=== PATIENT | male | born 1980 | race American Indian/Alaskan Native ===

== ENCOUNTER 2023-01-12 04:06 | Emergency (ER) | payer OTHER ==
[~2023-01-12] VITALS: Ht 175.3 cm; Wt 81.7 kg
== END 2023-01-12 04:50 | disposition home or self-care (01) ==
LOC: ED 04:06
DX: J98.8 Other specified respiratory disorders (principal); B97.89 Other viral agents as the cause of diseases classified elsewhere; Z20.822 Contact with and (suspected) exposure to COVID-19
CPT/HCPCS: 81003; 87502; 99283; C9803; U0003